=== PATIENT | female | born 1975 | race Caucasian/White ===

== ENCOUNTER → 2020-10-30 | Outpatient (CLI) | payer OTHER ==
[~2020-10-30] MED LIST: ALBUTEROL2.5 MG/3 M INH; BENTYL 20MG TAB20 MG PO; BREO ELLIPTA 21 EACH INH; DOXYCYCLINE MO100 MG PO; FAMOTIDINE20 MG PO; LEVAQUIN750 MG PO; MONTELUKAST SOD10 MG PO; PERCOCET 5/325 T1 EA PO; PHENERGAN 25 MG25 M1 PO; PREDNISONE20 MG PO; PROTONIX40 MG PO; VITAMIN D21250 MCG PO; ZYRTEC10 MG PO
== END ==
LOC: MAMO 10-16 09:00
DX: Z12.31 Encounter for screening mammogram for malignant neoplasm of breast (principal)
CPT/HCPCS: 36415; 77063; 77067